=== PATIENT | female | born 1995 ===

== ENCOUNTER 2020-10-04 19:36 | Inpatient (IN) | payer OTHER ==
[~2020-10-04] VITALS: Ht 175.3 cm; Wt 133.8 kg
[2020-10-04 20:27] LABS: BASOPHILS ABSOLUTE AUTO 0.04 K/mm3 (0.00-0.23); BASOPHILS PERCENT AUTO 0 % (0-2); EOSINOPHILS ABSOLUTE AUTO 0.13 K/mm3 (0.00-0.68); EOSINOPHILS PERCENT AUTO 1 % (0-6); Hemoglobin 12.9 g/dL (11.5-16.0); IMMATURE GRAN ABSOLUTE AUTO 0.05 K/mm3 (0.00-0.10); IMMATURE GRAN PERCENT AUTO 0 % (0-1); LYMPHOCYTES ABSOLUTE AUTO 2.57 K/mm3 (0.84-5.20); LYMPHOCYTES PERCENT AUTO 17 % (21-46); MONOCYTES ABSOLUTE AUTO 1.04 K/mm3 (0.16-1.47); MONOCYTES PERCENT AUTO 7 % (4-13); Mean Corpuscular HGB Conc 33.1 g/dL (31.5-36.5); Mean Corpuscular Volume 91 fL (80-100); NEUTROPHILS PERCENT AUTO 75 % (41-73); Platelet Count 245 K/mm3 (150-400); RDW Coefficient Variation 13.6 % (11.7-14.2); RDW Standard Deviation 45.1 fL (35.1-46.3); White Blood Cell Count 15.03 K/mm3 (4.00-11.30)
[2020-10-04] MEDS ORDERED: PRENATAL TABLE1 EAC2 PO (20:36)
--- NOTE | 2020-10-05 17:47 | NUR ---
10/05/20 174 Hanna Bryant VIABLE MALE DELIVRED VIA PRIMARY C/SECTION. CORD SEGMENT GIVEN TO RT RENEE FOR CORD GASSES. CORD BLOOD GIVEN TO PAMELA ALICIA.
[2020-10-05 17:57] LABS: PCO2 Cord - Arterial 67.7 mmHg (40-50); PO2 Cord - Arterial < 13 mmHg (16-20); pH Cord - Arterial 7.16 (7.28-7.35)
[2020-10-05 18:00] LABS: PCO2 Cord - Venous 52.5 mmHg (40-50); pH Umbilical Cord - Venous 7.23 (7.26-7.35)
--- NOTE | 2020-10-06 00:52 | NUR ---
ASSUMED CARE OF PT
--- NOTE | 2020-10-06 04:51 | NUR ---
CHARLES LACEY'Christi [id number]
[2020-10-06 05:35] LABS: BASOPHILS ABSOLUTE AUTO 0.06 K/mm3 (0.00-0.23); BASOPHILS PERCENT AUTO 0 % (0-2); EOSINOPHILS PERCENT AUTO 1 % (0-6); Hematocrit 34.5 % (33.0-51.0); Hemoglobin 11.6 g/dL (11.5-16.0); IMMATURE GRAN ABSOLUTE AUTO 0.05 K/mm3 (0.00-0.10); IMMATURE GRAN PERCENT AUTO 0 % (0-1); LYMPHOCYTES ABSOLUTE AUTO 2.92 K/mm3 (0.84-5.20); LYMPHOCYTES PERCENT AUTO 19 % (21-46); MONOCYTES ABSOLUTE AUTO 1.23 K/mm3 (0.16-1.47); MONOCYTES PERCENT AUTO 8 % (4-13); Mean Corpuscular HGB 30.7 pg (26.0-34.0); Mean Corpuscular HGB Conc 33.6 g/dL (31.5-36.5); Mean Corpuscular Volume 91 fL (80-100); Mean Platelet Volume 9.9 fL (9.1-12.4); NEUTROPHILS ABSOLUTE AUTO 10.79 K/mm3 (1.96-9.15); NEUTROPHILS PERCENT AUTO 71 % (41-73); Platelet Count 207 K/mm3 (150-400); RDW Coefficient Variation 13.8 % (11.7-14.2); RDW Standard Deviation 46.3 fL (35.1-46.3); Red Blood Cell Count 3.78 M/mm3 (3.80-5.20); White Blood Cell Count 15.15 K/mm3 (4.00-11.30)
--- NOTE | 2020-10-06 09:44 | NUR ---
RN/LC ROUNDED TO HELP W/ . PT STATES THAT IS GOING WELL, STATES LATCHING IS NOT PAINFUL. NB HAD JUST FED BEFORE RN TO ROOM. INSTRUCTED PT ON CORRECT POSITIONING, NIPPLE SHAPE AFTER FEEDS AND FREQUENCY OF FEEDING. FURTHER SUPPORT OFFERED IF PT DESIRES.
[2020-10-07] MEDS ORDERED: IBUP800 PO (10:02)
[2020-10-07] MEDS ORDERED: Percocet 5-3251 EACH PO (10:02)
--- NOTE | 2020-10-07 10:43 | NUR ---
DISCHARGE DISCHARGE INSTRUCTIONS REVIEWED AND SIGNED BY MOTHER. FATHER ALSO PRESENT DURING REVIEW. HARD RX GIVEN TO MOTHER. BABY AND MOM DISCHARGING HOME TOGETHER. FATHER GATHERING PERSONAL BELONGINGS.
== END 2020-10-07 11:10 | disposition home or self-care (01) | DRG 788 ==
LOC: OBS 19:36 → BC 19:45
PROVIDERS: Obstetrics & Gynecology; ADMIT Nurse Practitioner Obstetrics & Gynecology
PROC: 00HU33Z Insertion of Infusion Device into Spinal Canal, Percutaneous Approach (ICD-10-PCS; 2020-10-05)
PROC: 3E0R3BZ Introduction of Anesthetic Agent into Spinal Canal, Percutaneous Approach (ICD-10-PCS; 2020-10-05)
PROC: 10D00Z1 Extraction of Products of Conception, Low, Open Approach (ICD-10-PCS; principal; 2020-10-05 17:00)
DX: O77.9 Labor and delivery complicated by fetal stress, unspecified (principal); Z37.0 Single live birth; O62.1 Secondary uterine inertia; Z3A.41 41 weeks gestation of pregnancy; O69.1XX0 Labor and delivery complicated by cord around neck, with compression, not applicable or unspecified; O77.0 Labor and delivery complicated by meconium in amniotic fluid; O99.214 Obesity complicating childbirth; E66.01 Morbid (severe) obesity due to excess calories
CPT/HCPCS: 36415; 51702; 59070; 82803; 85025; 86850; 86900; 86901; A9270; J0690; J1885; J2001; J2370; J2405; J2590; J2765; J3010; J7030; J7120

== ENCOUNTER 2022-06-09 16:56 | Emergency (ER) | payer OTHER ==
[~2022-06-09] VITALS: Ht 175.3 cm; Wt 117.9 kg
[~2022-06-09 16:56] MED LIST: IBUP800 PO; PRENATAL TABLE1 EAC2 PO; Percocet 5-3251 EACH PO
[2022-06-09 20:25] LABS: Source, Urine Clean Catch
[2022-06-09 20:34] LABS: Bilirubin, Urine Neg (Neg); Blood, Urine 4+ (Neg); Glucose Qualitative, Urine Neg (Neg); Ketones, Urine Neg (Neg); Leukocyte Esterase, Urine Neg (Neg); Nitrite, Urine Neg (Neg); Protein, Urine Neg (Neg); Specific Gravity, Urine 1.015 (1.003-1.022); Urobilinogen, Urine NORM (Normal)
[2022-06-09 20:47] LABS: Appearance, Urine Hazy (Clear); Color, Urine Pale Yellow (P-Yellow)
[2022-06-09 20:49] LABS: Bacteria Mod /hpf; Squamous Epithelial Cells Rare /hpf (Few); White Blood Cells, Urine 0-2 /hpf (0-5)
== END 2022-06-09 21:32 | disposition home or self-care (01) ==
LOC: ER 16:56
PROVIDERS: Physician Assistant
DX: O20.9 Hemorrhage in early pregnancy, unspecified (principal); Z3A.10 10 weeks gestation of pregnancy
CPT/HCPCS: 76801; 76817; 81001; 84702; 87086; 99284-25

== ENCOUNTER 2023-01-10 07:02 | Inpatient (IN) | payer OTHER ==
[~2023-01-10] VITALS: Ht 170.2 cm; Wt 141.3 kg
[2023-01-10] VITALS (46 sets, daily range): BP systolic 95–145; BP diastolic 45–76
[2023-01-10 07:46] LABS: BASOPHILS ABSOLUTE AUTO 0.05 K/mm3 (0.00-0.23); BASOPHILS PERCENT AUTO 0 % (0-2); EOSINOPHILS ABSOLUTE AUTO 0.13 K/mm3 (0.00-0.68); EOSINOPHILS PERCENT AUTO 1 % (0-6); Hematocrit 38.2 % (33.0-51.0); Hemoglobin 12.8 g/dL (11.5-16.0); IMMATURE GRAN ABSOLUTE AUTO 0.03 K/mm3 (0.00-0.10); IMMATURE GRAN PERCENT AUTO 0 % (0-1); LYMPHOCYTES ABSOLUTE AUTO 2.42 K/mm3 (0.84-5.20); LYMPHOCYTES PERCENT AUTO 22 % (21-46); MONOCYTES ABSOLUTE AUTO 0.64 K/mm3 (0.16-1.47); MONOCYTES PERCENT AUTO 6 % (4-13); Mean Corpuscular HGB 29.4 pg (26.0-34.0); Mean Corpuscular HGB Conc 33.5 g/dL (31.5-36.5); Mean Corpuscular Volume 88 fL (80-100); Mean Platelet Volume 9.6 fL (9.1-12.4); NEUTROPHILS ABSOLUTE AUTO 7.95 K/mm3 (1.96-9.15); NEUTROPHILS PERCENT AUTO 71 % (41-73); Platelet Count 225 K/mm3 (150-400); RDW Coefficient Variation 15.1 % (11.7-14.2); RDW Standard Deviation 48.8 fL (35.1-46.3); Red Blood Cell Count 4.36 M/mm3 (3.80-5.20); White Blood Cell Count 11.22 K/mm3 (4.00-11.30)
--- NOTE | 2023-01-10 20:44 | NUR ---
01/10/232042 Anita Rogers PT ENTERED OR WITH SOTO CATHETER AND ON SCHEDULED ANTIBIOTICS
[2023-01-10 20:45] LABS: PCO2 Cord - Arterial 53.8 mmHg (40-50)
[2023-01-10 20:46] LABS: PO2 Cord - Arterial < 16 mmHg (16-20)
[2023-01-10 20:50] LABS: PCO2 Cord - Venous 43.3 mmHg (40-50); PO2 Cord - Venous 30.2 mmHg (28-32); pH Umbilical Cord - Venous 7.35 (7.26-7.35)
[2023-01-11 04:43] VITALS: BP 124/60
[2023-01-11 05:43] LABS: BASOPHILS ABSOLUTE AUTO 0.05 K/mm3 (0.00-0.23); BASOPHILS PERCENT AUTO 0 % (0-2); EOSINOPHILS ABSOLUTE AUTO 0.07 K/mm3 (0.00-0.68); EOSINOPHILS PERCENT AUTO 0 % (0-6); Hematocrit 35.6 % (33.0-51.0); Hemoglobin 12.2 g/dL (11.5-16.0); IMMATURE GRAN ABSOLUTE AUTO 0.05 K/mm3 (0.00-0.10); IMMATURE GRAN PERCENT AUTO 0 % (0-1); LYMPHOCYTES PERCENT AUTO 15 % (21-46); MONOCYTES ABSOLUTE AUTO 1.23 K/mm3 (0.16-1.47); MONOCYTES PERCENT AUTO 8 % (4-13); Mean Corpuscular HGB Conc 34.3 g/dL (31.5-36.5); Mean Corpuscular Volume 88 fL (80-100); Mean Platelet Volume 9.9 fL (9.1-12.4); NEUTROPHILS ABSOLUTE AUTO 11.83 K/mm3 (1.96-9.15); NEUTROPHILS PERCENT AUTO 76 % (41-73); Platelet Count 182 K/mm3 (150-400); RDW Coefficient Variation 15.3 % (11.7-14.2); RDW Standard Deviation 48.6 fL (35.1-46.3); Red Blood Cell Count 4.06 M/mm3 (3.80-5.20); White Blood Cell Count 15.63 K/mm3 (4.00-11.30)
[2023-01-11 08:26] VITALS: BP 123/58
--- NOTE | 2023-01-11 08:34 | NUR ---
POWERGLIDE IN TRISTAN PLACED YESTERSDAY BY DAY SHIFT PER REPORT
[2023-01-11 11:06] VITALS: BP 120/58
[2023-01-11 15:54] VITALS: BP 111/58
[2023-01-11 20:24] VITALS: BP 131/61
[2023-01-12 00:32] VITALS: BP 116/59
[2023-01-12 03:24] VITALS: BP 121/56
[2023-01-12 07:12] VITALS: BP 114/58
[2023-01-12] MEDS ORDERED: IBUP800 PO (09:36)
[2023-01-12] MEDS ORDERED: ACET500 PO (09:37)
[2023-01-12] MEDS ORDERED: Percocet 5-3251 EACH PO (10:05)
--- NOTE | 2023-01-12 10:42 | NUR ---
DOSCJARGE TEACHING COMPLETED, NO QUESTIONS AT THIS TIME, PT VERBALIZED UNDERSTANDING INSTRUCTIONS AND FOLLOW UP APPT.
--- NOTE | 2023-01-19 12:32 | NUR ---
UPDATE INTERVENTION UPDATED PER EMR/RN
== END 2023-01-12 12:00 | disposition home or self-care (01) | DRG 788 ==
LOC: OBS 07:02 → BC 07:05 → OBS 07:17 → BC 07:18
PROVIDERS: Obstetrics & Gynecology; ADMIT Nurse Practitioner Obstetrics & Gynecology
PROC: 10H07YZ Insertion of Other Device into Products of Conception, Via Natural or Artificial Opening (ICD-10-PCS; 2023-01-10)
PROC: 4A033R1 Measurement of Arterial Saturation, Peripheral, Percutaneous Approach (ICD-10-PCS; 2023-01-10)
PROC: 10D00Z1 Extraction of Products of Conception, Low, Open Approach (ICD-10-PCS; principal; 2023-01-10 19:45)
DX: O48.0 Post-term pregnancy (principal); O34.211 Maternal care for low transverse scar from previous cesarean delivery; Z37.0 Single live birth; O76 Abnormality in fetal heart rate and rhythm complicating labor and delivery; O36.63X0 Maternal care for excessive fetal growth, third trimester, not applicable or unspecified; O69.1XX0 Labor and delivery complicated by cord around neck, with compression, not applicable or unspecified; O99.824 Streptococcus B carrier state complicating childbirth; Z3A.41 41 weeks gestation of pregnancy; Z98.890 Other specified postprocedural states
CPT/HCPCS: 36415; 51702; 82803; 85025; 86850; 86900; 86901; A9270; J0290; J0690; J1885; J2001; J2370; J2590; J2704; J2765; J3010; J7120